=== PATIENT | female | born 1955 ===

== ENCOUNTER 2016-09-15 22:43 | Emergency (ER) | payer OTHER ==
[2016-09-15 22:43] VITALS: BMI 27.3
[2016-09-15 22:59] VITALS: O2SAT 100
--- NOTE | 2016-09-16 | C.PDOC ---
History Of Present Illness 61 year old female with a Hx of HTN who presents to the ER with daughter at the bedside for a complaint of an intermittent headache for the past week. Patient states her blood pressure has been high all week; she went to see her PMD Dr. Jaden Hope who told her to double the dose of lisinopril she normally takes. Patient reports her bp was 150/80 today; she took the double dose of lisinopril and came to the ER. On arrival patient's blood pressure is normal and she has minimal pain from the headache. Denies chest pain, weakness,dizziness or nausea. Time Seen by Provider: 09/15/16 23:32 Chief Complaint (Nursing): High Blood Pressure History Per: Patient, Family, Dormitory Maid History/Exam Limitations: no limitations Onset/Duration Of Symptoms: Days (7) Current Symptoms Are (Timing): Still Present Associated Symptoms: Headache. denies: Chest Pain, Dyspnea, Focal Weakness Quality Of Symptoms: Asymptomatic Exacerbating Factor(s): Pos: None Recent travel outside of the [place]: No Past Medical History Reviewed: Historical Data, Nursing Documentation, Vital Signs Vital Signs: Last Vital Signs Temp 97.8 F 09/16/16 00:21 Pulse 59 L 09/16/16 00:21 Resp 18 09/16/16 00:21 BP 116/71 09/16/16 00:21 Pulse Ox 100 09/16/16 02:03 - Medical History PMH: HTN, Hypercholesterolemia Surgical History: No Surg Hx Family History: States: Unknown Family Hx - Social History Hx Tobacco Use: No Hx Alcohol Use: No Hx Substance Use: No - Immunization History Hx Tetanus Toxoid Vaccination: No Hx Influenza Vaccination: No Hx Pneumococcal Vaccination: No Review Of Systems Constitutional: Negative for: Weakness Cardiovascular: Negative for: Chest Pain Gastrointestinal: Negative for: Nausea Neurological: Positive for: Headache Physical Exam - Physical Exam Appears: Non-toxic, No Acute Distress, Other (Comfortable, Vitals stable) Skin: Normal Color, Warm, Dry Head: Atraumatic, Normacephalic Ear(s): Bilateral: Normal Oral Mucosa: Moist Neck: Normal, Supple Chest: Symmetrical, No Tenderness Cardiovascular: Rhythm Regular, No Murmur Respiratory: Normal Breath Sounds, No Rales, No Rhonchi, No Wheezing Gastrointestinal/Abdominal: Soft, No Tenderness Neurological/Psych: Oriented x3, Normal Speech, Normal Cognition ED Course And Treatment O2 Sat by Pulse Oximetry: 100 (Room air) Pulse Ox Interpretation: Normal Progress Note: Tylenol administered. Family was advised on the risk and benefits of a CT scan of the head to check for other intracranial abnormalities ; since patient is not in any distress and asymptomatic they agree to not have a CT of the head done. Patient was advised to follow up with Dr. Jaden Hope and to return to the ED if condition worsens, they expressed understanding of all instructions. Disposition Counseled Patient/Family Regarding: Diagnosis, Need For Followup, Rx Given - Disposition Referrals: Roland Hope MD [Medical Doctor] - Disposition: HOME/ ROUTINE Disposition Time: 23:54 Condition: STABLE Additional Instructions: Please continue with Lisinopril 20 mg daily or may alternate 20- 10 every other day Follow up with PMD Return to ER if worse Instructions: Hypertension (ED) - Clinical Impression Clinical Impression: History of hypertension, Mild headache - Scribe Statement The provider has reviewed the documentation as recorded by the Scribitzel Vallejo All medical record entries made by the Boydibitzel were at my direction and personally dictated by me. I have reviewed the chart and agree that the record accurately reflects my personal performance of the history, physical exam, medical decision making, and the department course for this patient. I have also personally directed, reviewed, and agree with the discharge instructions and disposition.
[2016-09-16 00:22] VITALS: BP 116/71; PULSE 59; RESP 18; TEMP 97.8
== END 2016-09-16 00:22 | disposition home or self-care (01) ==
LOC: C.ER 22:43
DX: R51 Headache (principal); Z86.79 Personal history of other diseases of the circulatory system

== ENCOUNTER 2016-09-20 10:37 | Emergency (ER) | payer OTHER ==
[2016-09-20 10:38] VITALS: BMI 27.3
[2016-09-20 10:42] VITALS: RESP 18; O2SAT 100
--- NOTE | 2016-09-20 12:43 | C.PDOC ---
History Of Present Illness 61 y/o female c/o persistent headache for 2 weeks, was seen by PMD Dr. Jaden Hancock recently and given prescription for CT Head. Patient previously seen in ER on for the same complaint. She is requesting to be seen in ER again instead of going for outpatient CT scan because she states her headache persists. Patient denies fever, chills, nausea, vomiting, neck pain/stiffness, visual changes, facial droop, slurred speech, extremity weakness, sensory changes., dizziness, Time Seen by Provider: 09/20/16 11:03 Chief Complaint (Nursing): Headache History Per: Patient History/Exam Limitations: no limitations Onset/Duration Of Symptoms: Days, Persistent Current Symptoms Are (Timing): Still Present Severity: Mild Quality: "Pain" Associated Symptoms: denies: Photophobia, Blurred Vision, Nausea, Vomiting, Extremity Weakness Past Medical History Reviewed: Historical Data, Nursing Documentation, Vital Signs Vital Signs: Last Vital Signs Temp 98.7 F 09/20/16 13:39 Pulse 59 L 09/20/16 13:39 Resp 18 09/20/16 13:39 BP 110/57 L 09/20/16 13:39 Pulse Ox 100 09/20/16 15:10 - Medical History PMH: HTN, Hypercholesterolemia Family History: States: No Known Family Hx - Social History Hx Tobacco Use: No Hx Alcohol Use: No Hx Substance Use: No - Immunization History Hx Tetanus Toxoid Vaccination: No Hx Influenza Vaccination: No Hx Pneumococcal Vaccination: No Review Of Systems Except As Marked, All Systems Reviewed And Found Negative. Constitutional: Negative for: Fever, Chills Cardiovascular: Negative for: Chest Pain, Palpitations Respiratory: Negative for: Cough, Shortness of Breath, Wheezing Gastrointestinal: Negative for: Nausea, Vomiting Skin: Negative for: Rash Neurological: Positive for: Headache. Negative for: Weakness, Numbness, Incoordination, Confusion, Seizures, Dizziness Physical Exam - Physical Exam Appears: Well, Non-toxic, No Acute Distress Skin: Warm, Dry Head: Atraumatic, Normacephalic Eye(s): bilateral: Normal Inspection, PERRL, EOMI Oral Mucosa: Moist Neck: Normal, Normal ROM, Supple, Other (no meningismus ) Cardiovascular: Rhythm Regular Respiratory: Normal Breath Sounds, No Rales, No Rhonchi, No Wheezing Gastrointestinal/Abdominal: Normal Exam, Bowel Sounds, Soft, No Tenderness Back: Normal Inspection Extremity: Bilateral: Atraumatic, Normal Color And Temperature, Normal ROM Neurological/Psych: Oriented x3, Normal Speech, Normal Cognition, No Normal Cranial Nerves, Cerebellar Signs, Normal Motor, Normal Sensation Gait: Steady ED Course And Treatment ECG: Interpreted By Me, Viewed By Me (sinus bradycardia 52 bpm, left axis deviation, no acute ST/T wave changes) ECG Interpretation: No Acute Changes O2 Sat by Pulse Oximetry: 100 (RA) Pulse Ox Interpretation: Normal - CT Scan/US CT Head Other Rad Studies (CT/US): Read By Radiologist, Radiology Report Reviewed CT/US Interpretation: IMPRESSION: Normal head CT. No significant interval change compared to prior CT 09/04/2012. Progress Note: CT Head, EKG ordered and reviewed. Patient did not want pain medication. Reevaluation Time: 13:15 Reassessment Condition: Improved (Patient resting comfortably, in no current pain. CT head (-) for acute findings. Patient given Rx for Fiorecet and instructed to follow up with PMD in 1-2 days. She understands she should return to ED if symptoms worsen.) Disposition Counseled Patient/Family Regarding: Studies Performed, Diagnosis, Need For Followup, Rx Given - Disposition Referrals: Weston Hancock MD [Staff Provider] - Didier Sandoval MD [Staff Provider] - Disposition: HOME/ ROUTINE Disposition Time: 13:20 Condition: STABLE Additional Instructions: YOU NEED TO FOLLOW UP WITH NEUROLOGY WITHIN 1 WEEK USE MEDICATION FOR HEADACHE NEEDED FOLLOW UP WITH DR Jaden HANCOCK IN 1-2 DAYS RETURN TO ER IF SYMPTOMS WORSEN Prescriptions: Acetaminophen/Butalbital/Caf [Fioricet] 1 tab PO TID PRN #20 tab PRN Reason: Headache Instructions: Acute Headache (ED) Print Language: TAMAZIGHT - POA Present On Arrival: None - Clinical Impression Clinical Impression: Headache - Scribe Statement The provider has reviewed the documentation as recorded by the Bonita Bryan Provider Attestation: All medical record entries made by the Bonita were at my direction and personally dictated by me. I have reviewed the chart and agree that the record accurately reflects my personal performance of the history, physical exam, medical decision making, and the department course for this patient. I have also personally directed, reviewed, and agree with the discharge instructions and disposition.
--- NOTE | 2016-09-20 13:10 | CT ---
PROCEDURE: CT HEAD WITHOUT CONTRAST. HISTORY: recurrent headaches COMPARISON: 09/04/2012 TECHNIQUE: Axial computed tomography images were obtained through the head/brain without intravenous contrast. Radiation dose: Total exam DLP = 859 mGy-cm. This CT exam was performed using one or more of the following dose reduction techniques: Automated exposure control, adjustment of the mA and/or kV according to patient size, and/or use of iterative reconstruction technique. FINDINGS: HEMORRHAGE: No intracranial hemorrhage. BRAIN: No mass effect or edema. No atrophy or chronic microvascular ischemic changes. VENTRICLES: Unremarkable. No hydrocephalus. CALVARIUM: Unremarkable. PARANASAL SINUSES: Unremarkable as visualized. No significant inflammatory changes. MASTOID AIR CELLS: Unremarkable as visualized. No inflammatory changes. OTHER FINDINGS: None. IMPRESSION: Normal head CT. No significant interval change compared to prior CT 09/04/2012.
[2016-09-20 13:45] VITALS: BP 110/57; PULSE 59; TEMP 98.7
--- NOTE | 2016-09-22 16:13 | CARD ---
APPROVED REPORT EKG Measurement Heart [id number] <Conclusion> Sinus bradycardia Nonspecific T wave abnormality Abnormal ECG
== END 2016-09-20 13:45 | disposition home or self-care (01) ==
LOC: C.ER 10:37
DX: R51 Headache (principal)

== ENCOUNTER 2018-06-25 14:52 | Outpatient (CLI) | payer OTHER | END 2018-06-25 14:53 | disposition home or self-care (01) | LOC: C.MRIC 14:53 | DX: H91.90 Unspecified hearing loss, unspecified ear (principal); H93.19 Tinnitus, unspecified ear ==

== ENCOUNTER 2018-07-02 19:47 | Observation (INO) | payer OTHER ==
[2018-07-02 19:48] VITALS: BMI 27.3
[2018-07-02] MEDS ORDERED: Aspirin 325 mg EC Tablets PO STA (21:03)
[2018-07-02] MEDS ORDERED: Aspirin 325 mg EC Tablets PO ONE (21:18)
[2018-07-02 21:21] LABS: BASO # 0.1 K/uL (0.0-0.2); EOS # 0.1 K/uL (0.0-0.7); EOS % 1.3 % (0.0-4.0); HEMOGLOBIN 12.6 g/dL (11.0-16.0); LYMPH # 2.8 K/uL (1.0-4.3); LYMPH % 32.9 % (20.0-40.0); MEAN CORPUSCULAR HEMOGLOBIN 29.7 pg (27.0-31.0); MEAN CORPUSCULAR HGB CONC 33.3 g/dL (33.0-37.0); MEAN PLATELET VOLUME 7.4 fL (7.2-11.7); MONO # 0.4 K/uL (0.0-0.8); NEUT # 5.1 K/uL (1.8-7.0); NEUT % 59.8 % (50.0-75.0); NRBC % 0.1 % (0.0-2.0); RBC 4.25 Mil/uL (3.80-5.20); RED CELL DISTRIBUTION WIDTH 13.1 % (11.5-14.5); WHITE BLOOD COUNT 8.6 K/uL (4.8-10.8)
[2018-07-02 21:54] LABS: BLOOD UREA NITROGEN 16 mg/dL (7-17); CALCIUM 9.7 mg/dl (8.6-10.4); GFR NON-AFRICAN AMERICAN > 60
[2018-07-02 22:04] LABS: ALB/GLOB RATIO 1.5 (1.0-2.1); ALBUMIN 4.5 g/dL (3.5-5.0); ALT/SGPT 12 U/L (9-52); AST/SGOT 53 U/L (14-36)
[2018-07-02 22:06] LABS: B-TYPE NATRIURETIC PEPTIDE 27.1 pg/mL (0-900)
--- NOTE | 2018-07-02 22:10 | C.PDOC ---
History Of Present Illness 63 y/o female,w/PMhx of HTN and hypercholesterolemia, presents to the ER complaining of cough which has been present for the past 2 weeks. Patient states that she has associated headache, nasal congestion,rhinorrhea, and generalized body aches. Patient reports that she was recently seen by her PMD and she was prescribed Zithromax. She notes that she has been taking the medication without improvement. She saw her PMD today and was referred to the ER. Denies having fever,chills, dizziness, weakness, nausea, vomiting, and diarrhea. PMD: Dr.Vinodkumar Hope Time Seen by Provider: 07/02/18 20:01 Chief Complaint (Nursing): Flu-like Symptoms History Per: Patient History/Exam Limitations: no limitations Onset/Duration Of Symptoms: Days Current Symptoms Are (Timing): Still Present Severity: Moderate Past Medical History Reviewed: Historical Data, Nursing Documentation, Vital Signs Vital Signs: Last Vital Signs Temp 97.8 F 07/02/18 19:51 Pulse 77 07/02/18 19:51 Resp 16 07/02/18 19:51 BP 114/84 07/02/18 19:51 Pulse Ox 97 07/02/18 19:51 - Medical History PMH: HTN, Hypercholesterolemia Other Surgeries: Hx of surgeries Family History: States: No Known Family Hx - Social History Hx Tobacco Use: No Hx Alcohol Use: No Hx Substance Use: No - Immunization History Hx Tetanus Toxoid Vaccination: No Hx Influenza Vaccination: No Hx Pneumococcal Vaccination: No Review Of Systems Constitutional: Positive for: Malaise. Negative for: Fever, Chills ENT: Positive for: Nose Discharge Respiratory: Positive for: Cough Gastrointestinal: Negative for: Nausea, Vomiting, Diarrhea Neurological: Positive for: Headache. Negative for: Dizziness Physical Exam - Physical Exam Appears: Non-toxic, No Acute Distress Skin: Normal Color, Warm, Dry Head: Atraumatic, Normacephalic Eye(s): bilateral: Normal Inspection Nose: Normal Oral Mucosa: Moist Tongue: Normal Appearing Lips: Normal Appearing Throat: Normal, No Erythema, No Exudate Neck: Normal ROM, Supple Chest: Symmetrical Cardiovascular: Rhythm Regular Respiratory: Normal Breath Sounds, No Rales, No Rhonchi, No Wheezing Gastrointestinal/Abdominal: Soft, No Tenderness Neurological/Psych: Oriented x3, Normal Speech, Normal Motor, Normal Sensation ED Course And Treatment - Laboratory Results Result Diagrams: 07/02/18 21:17 07/02/18 21:17 Lab Results: PT 11.0 SECONDS (9.7-12.2) 07/02/18 21:17 INR 1.0 07/02/18 21:17 APTT 37.0 SECONDS (21-34) H 07/02/18 21:17 NT-Pro-B Natriuret Pep 27.1 pg/mL (0-900) 07/02/18 21:17 Total Bilirubin 0.9 mg/dL (0.2-1.3) 07/02/18 21:17 AST 53 U/L (14-36) H 07/02/18 21:17 ALT 12 U/L (9-52) 07/02/18 21:17 Alkaline Phosphatase 99 U/L (38-126) 07/02/18 21:17 Total Protein 7.6 g/dL (6.3-8.3) 07/02/18 21:17 Albumin 4.5 g/dL (3.5-5.0) 07/02/18 21:17 Globulin 3.1 gm/dL (2.2-3.9) 07/02/18 21:17 Albumin/Globulin Ratio 1.5 (1.0-2.1) 07/02/18 21:17 ECG: Interpreted By Me ECG Rhythm: Sinus Rhythm Interpretation Of ECG: t wave inversion in lateral leads Rate From EC O2 Sat by Pulse Oximetry: 97 (RA) Pulse Ox Interpretation: Normal - Other Rad cxr X-Ray: Viewed By Me, Read By Radiologist Interpretation: Accession No. : [id number]. Patient Name / ID : SANTI CUNNINGHAM GRACEBEMichelle / [id number]. Exam Date : 07/02/2018 21:09:28 ( Approved ). Study Comment : Sex / Age : F / 63Y. Creator : Winnie Nogueira MD. Dictator : Winnie Nogueira MD. Agricultural Engineering Teacher : Micro Lab Analyst : Winnie Nogueira MD. Approver2 : Report Date : 07/02/2018 22:04:33. My Comment : . HISTORY: cough. COMPARISON: Chest x-ray performed 11/14/12. TECHNIQUE: Chest PA and lateral, 2 views. FINDINGS: Examination limited by habitus. LUNGS: Subtle atelectasis or pneumonia at the left lung base. Please note that chest x-ray has limited sensitivity for the detection of pulmonary masses. PLEURA: No significant pleural effusion identified. No definite pneumothorax . CARDIOVASCULAR: Heart size appears within normal limits. No atherosclerotic calcification present. OSSEOUS STRUCTURES: No acute osseous abnormality identified. VISUALIZED UPPER ABDOMEN: Unremarkable. OTHER FINDINGS: None. IMPRESSION: Subtle atelectasis or pneumonia at the left lung base. Correlate clinically. Medical Decision Making Medical Decision Making: Plan: --Labs including cardiac enzymes- normal WBC and Troponin --EKG - t- wave inversion in lateral leads --Aspirin PO --CXR - suspicious for pneumonia vs atelectasis --D/W Dr. Robin who accepts patient for admission (pt refused admission under pmd Dr. Jr oHpe) Disposition Discussed With Dr.: Sony Robin Jr. 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 - Scribe Statement The provider has reviewed the documentation as recorded by the Scribe Chris Samuel Provider Attestation All medical record entries made by the Scribe were at my direction and personally dictated by me. I have reviewed the chart and agree that the record accurately reflects my personal performance of the history, physical exam, medical decision making, and the department course for this patient. I have also personally directed, reviewed, and agree with the discharge instructions and disposition. Decision To Admit - Pt Status Changed To: Hospital Disposition Of: Observation - . Bed Request Type: Telemetry Admitting Physician: Sony Robin Jr. Patient Diagnosis: Chest pain, Cough, Pneumonia
[2018-07-02 23:47] VITALS: RESP 20
[2018-07-03] MEDS ORDERED: Sodium Chloride 0.9% 1,000 ML IV SCH (01:15)
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
[2018-07-03 05:09] LABS: BASO # 0.1 K/uL (0.0-0.2); BASO % 0.8 % (0.0-2.0); EOS # 0.1 K/uL (0.0-0.7); EOS % 1.6 % (0.0-4.0); HEMOGLOBIN 11.5 g/dL (11.0-16.0); LYMPH # 2.6 K/uL (1.0-4.3); LYMPH % 40.4 % (20.0-40.0); MEAN CELL VOLUME 88.5 fL (81.0-99.0); MEAN CORPUSCULAR HEMOGLOBIN 28.7 pg (27.0-31.0); MEAN CORPUSCULAR HGB CONC 32.5 g/dL (33.0-37.0); MEAN PLATELET VOLUME 7.5 fL (7.2-11.7); MONO # 0.3 K/uL (0.0-0.8); MONO % 5.4 % (0.0-10.0); NEUT # 3.4 K/uL (1.8-7.0); NEUT % 51.8 % (50.0-75.0); WHITE BLOOD COUNT 6.5 K/uL (4.8-10.8)
[2018-07-03 05:41] LABS: SQUAMOUS EPITHIAL < 1 /hpf (0-5); URINE BILIRUBIN NEGATIVE (NEGATIVE); URINE BLOOD 1+ (NEGATIVE); URINE CLARITY Clear (Clear); URINE COLOR Yellow (YELLOW); URINE GLUCOSE (UA) NORMAL (Normal); URINE LEUKOCYTE ESTERASE NEG Leu/uL (Negative); URINE PROTEIN NEGATIVE (NEGATIVE); URINE UROBILINOGEN NORMAL mg/dL (0.2-1.0)
[2018-07-03 07:14] LABS: ALB/GLOB RATIO 1.6 (1.0-2.1); ALBUMIN 3.9 g/dL (3.5-5.0); ALT/SGPT 17 U/L (9-52); AST/SGOT 23 U/L (14-36); BLOOD UREA NITROGEN 14 mg/dL (7-17); CALCIUM 8.7 mg/dl (8.6-10.4); CK-MB 0.96 ng/mL (0.0-3.38); GFR NON-AFRICAN AMERICAN > 60
[2018-07-03 07:56] VITALS: BP 131/84; TEMP 98; O2SAT 95
[2018-07-03 09:08] VITALS: PULSE 69
[2018-07-03] MEDS ORDERED: Enoxaparin 40 mg Syringe SC SCH (10:00)
[2018-07-03 10:21] LABS: CK-MB 0.89 ng/mL (0.0-3.38)
--- NOTE | 2018-07-03 11:25 | CP.PCM.DIS ---
Provider - Provider Date of Admission: 07/02/18 22:44 Attending physician: Sony Robin Jr, MD Time Spent in preparation of Discharge (in minutes): 39 Diagnosis - Discharge Diagnosis (1) Cough Status: Acute (2) Pneumonia Status: Acute Hospital Course - Lab Results Lab Results: Most Recent Lab Values WBC 6.5 K/uL (4.8-10.8) 07/03/18 05:05 RBC 4.00 Mil/uL (3.80-5.20) 07/03/18 05:05 Hgb 11.5 g/dL (11.0-16.0) 07/03/18 05:05 Hct 35.4 % (34.0-47.0) 07/03/18 05:05 MCV 88.5 fL (81.0-99.0) 07/03/18 05:05 MCH 28.7 pg (27.0-31.0) 07/03/18 05:05 MCHC 32.5 g/dL (33.0-37.0) L 07/03/18 05:05 RDW 13.0 % (11.5-14.5) 07/03/18 05:05 Plt Count 293 K/uL (130-400) 07/03/18 05:05 MPV 7.5 fL (7.2-11.7) 07/03/18 05:05 Neut % (Auto) 51.8 % (50.0-75.0) 07/03/18 05:05 Lymph % (Auto) 40.4 % (20.0-40.0) H 07/03/18 05:05 [place] % (Auto) 5.4 % (0.0-10.0) 07/03/18 05:05 Eos % (Auto) 1.6 % (0.0-4.0) 07/03/18 05:05 Baso % (Auto) 0.8 % (0.0-2.0) 07/03/18 05:05 Neut # (Auto) 3.4 K/uL (1.8-7.0) 07/03/18 05:05 Lymph # (Auto) 2.6 K/uL (1.0-4.3) 07/03/18 05:05 [place] # (Auto) 0.3 K/uL (0.0-0.8) 07/03/18 05:05 Eos # (Auto) 0.1 K/uL (0.0-0.7) 07/03/18 05:05 Baso # (Auto) 0.1 K/uL (0.0-0.2) 07/03/18 05:05 PT 11.0 SECONDS (9.7-12.2) 07/02/18 21:17 INR 1.0 07/02/18 21:17 APTT 37.0 SECONDS (21-34) H 07/02/18 21:17 Sodium 136 mmol/L (132-148) 07/03/18 05:05 Potassium 4.0 mmol/L (3.6-5.2) 07/03/18 05:05 Chloride 107 mmol/L (98-107) 07/03/18 05:05 Carbon Dioxide 19 mmol/L (22-30) L 07/03/18 05:05 Anion Gap 14 (10-20) 07/03/18 05:05 BUN 14 mg/dL (7-17) 07/03/18 05:05 Creatinine 0.5 mg/dL (0.7-1.2) L 07/03/18 05:05 Est GFR ( Amer) > 60 07/03/18 05:05 Est GFR (Non-Af Amer) > 60 07/03/18 05:05 Random Glucose 105 mg/dL (65-105) D 07/03/18 05:05 Calcium 8.7 mg/dl (8.6-10.4) 07/03/18 05:05 Phosphorus 4.4 mg/dL (2.5-4.5) 07/03/18 05:05 Magnesium 1.9 mg/dL (1.6-2.3) 07/03/18 05:05 Total Bilirubin 0.4 mg/dL (0.2-1.3) 07/03/18 05:05 AST 23 U/L (14-36) 07/03/18 05:05 ALT 17 U/L (9-52) 07/03/18 05:05 Alkaline Phosphatase 88 U/L (38-126) 07/03/18 05:05 Total Creatine Kinase 58 U/L (30-135) 07/03/18 09:26 CK-MB (Mass) 0.89 ng/mL (0.0-3.38) 07/03/18 09:26 Troponin I < 0.0120 ng/mL (0.00-0.120) 07/03/18 09:26 NT-Pro-B Natriuret Pep 27.1 pg/mL (0-900) 07/02/18 21:17 Total Protein 6.4 g/dL (6.3-8.3) 07/03/18 05:05 Albumin 3.9 g/dL (3.5-5.0) 07/03/18 05:05 Globulin 2.5 gm/dL (2.2-3.9) 07/03/18 05:05 Albumin/Globulin Ratio 1.6 (1.0-2.1) 07/03/18 05:05 Urine Color Yellow (YELLOW) 07/03/18 05:05 Urine Clarity Clear (Clear) 07/03/18 05:05 Urine pH 5.0 (5.0-8.0) 07/03/18 05:05 Ur Specific [place] 1.013 (1.003-1.030) 07/03/18 05:05 Urine Protein Negative mg/dL (NEGATIVE) 07/03/18 05:05 Urine Glucose (UA) Normal mg/dL (Normal) 07/03/18 05:05 Urine Ketones Negative mg/dL (NEGATIVE) 07/03/18 05:05 Urine Blood 1+ (NEGATIVE) H 07/03/18 05:05 Urine Nitrate Negative (NEGATIVE) 07/03/18 05:05 Urine Bilirubin Negative (NEGATIVE) 07/03/18 05:05 Urine Urobilinogen Normal mg/dL (0.2-1.0) 07/03/18 05:05 Ur Leukocyte Esterase Neg [place]/uL (Negative) 07/03/18 05:05 Urine WBC (Auto) 1 /hpf (0-5) 07/03/18 05:05 Urine RBC (Auto) 3 /hpf (0-3) 07/03/18 05:05 Ur Squamous Epith Cells < 1 /hpf (0-5) 07/03/18 05:05 Influenza Typ A,B (EIA) Negative for flu a/b (NEGATIVE) 07/03/18 07:06 Ur L.pneumophila Ag Negative (NEGATIVE) 07/03/18 05:05 Mycoplasma pneumon IgM Negative (NEGATIVE) 07/03/18 01:59 - Hospital Course Hospital Course: Upon Admission Patient is a 63 year old female with history of hypertension and HLD who presents for 2 weeks history of cough, nasal congestion, intermittent headache, and diffuse body aches. Patient states she went to her PMD Dr. Jaden Hope and he prescribed her Zithromax for 5 days, which she completed. She states she came in to the ER because she was concerned that she had diffuse body aches. She currently denies fevers, chills, chest pain, shortness of breath. Hospital Course 63 year old female admitted for cough, intermittent headache, and diffuse body aches. CXR was suggestive of atelectasis vs pna. Cx patient had almost no symptoms of pna. After admission her other symptoms all resolved. Patient complained of bilateral knee pain attributing it to her chronic arthritis. Patient was discharged with oral meds and f/u instructions. Discharge Plan 1. Patient is stable for discharge to home as per Dr. Robin 2. Patient will resume all home meds 3. Patient to be discharged w/ 1 month supply of celecoxib to be used as prescribed 4. Patient should followup w/ pmd within 1 week of discharge 5. If symptoms worsen or recur, patient should return to hospital. Disclaimer: Written above is a synopsis of patient current hospital admission. For full report refer to EMR Discharge Exam - Head Exam Head Exam: ATRAUMATIC, NORMOCEPHALIC - Eye Exam Eye Exam: EOMI, Normal appearance - ENT Exam ENT Exam: Mucous Membranes Moist - Respiratory Exam Respiratory Exam: NORMAL BREATHING PATTERN. absent: Decreased Breath Sounds, Respiratory Distress - Cardiovascular Exam Cardiovascular Exam: REGULAR RHYTHM, +S1, +S2. absent: Tachycardia - GI/Abdominal Exam GI & Abdominal Exam: Normal Bowel Sounds, Soft. absent: Diminished Bowel Sounds, Distended, Firm - Extremities Exam Extremities exam: normal inspection - Neurological Exam Neurological exam: Alert, Oriented x3 - Skin Skin Exam: Dry, Intact, Normal Color Discharge Plan - Discharge Medications Prescriptions: Celecoxib 100 mg PO Q12 #60 capsule - Follow Up Plan Condition: STABLE Disposition: HOME/ ROUTINE Additional Instructions: 1. Patient is stable for discharge to home as per Dr. Robin 2. Patient will resume all home meds 3. Patient to be discharged w/ 1 month supply of celecoxib to be used as prescribed 4. Patient should followup w/ pmd within 1 week of discharge 5. If symptoms worsen or recur, patient should return to hospital.
--- NOTE | 2018-07-04 03:08 | CARD ---
APPROVED REPORT Date of service: 07/02/2018 EKG Measurement Heart [id number] <Conclusion> Normal sinus rhythm Minimal voltage criteria for LVH, may be normal variant T wave abnormality, consider lateral ischemia Abnormal ECG
--- NOTE | 2018-07-04 18:43 | CARD ---
APPROVED REPORT Date of service: 07/03/2018 EKG Measurement Heart [id number] <Conclusion> Normal sinus rhythm ST & T wave abnormality, consider inferior ischemia ST & T wave abnormality, consider anterolateral ischemia Abnormal ECG
--- NOTE | 2018-07-04 18:45 | CARD ---
APPROVED REPORT Date of service: 07/03/2018 EKG Measurement Heart [id number] [place] [id number] <Conclusion> Normal sinus rhythm Nonspecific ST and T wave abnormality Abnormal ECG
== END 2018-07-03 13:14 | disposition home or self-care (01) ==
LOC: C.ER 19:47 → C.9E 22:44 → C.6T 23:57
PROVIDERS: ADMIT Internal Medicine; ATTEND Internal Medicine
DX: J18.9 Pneumonia, unspecified organism (principal); R05 Cough; I10 Essential (primary) hypertension; E78.5 Hyperlipidemia, unspecified; E78.00 Pure hypercholesterolemia, unspecified; M17.0 Bilateral primary osteoarthritis of knee
CPT/HCPCS: 36415; 71046; 80053; 81001; 82948; 83735; 83880; 84100; 84484; 85025; 85610; 85730; 86317; 86738; 87040; 87086; 87449; 87804; 97116; 97162; G0378; G8978; G8979; J1650; J7030